=== PATIENT | male | born 1975 | race Caucasian/White ===

== ENCOUNTER → 2022-08-18 09:09 | Outpatient (CLI) | payer OTHER, SELFPAY ==
[2022-08-18 10:36] LABS: Alanine Aminotransferase 33 IU/L (<50); Albumin 4.5 g/dL (3.5-5.0); Albumin Globulin Ratio 1.5 (1.0-2.8); Alkaline Phosphatase 74 U/L (38-126); Aspartate Aminotransferase 23 IU/L (17-59); BUN Creatinine Ratio 22.4 (6-22); Bilirubin Total 0.8 mg/dL (0.2-1.3); Blood Urea Nitrogen 17 mg/dL (9-20); Calcium 9.2 mg/dL (8.4-10.2); Carbon Dioxide 22 mmol/L (22-32); Chloride 108 mmol/L (98-107); Cholesterol 191 mg/dL (140-199); Estimated Glomerular Filt Rate > 60 mL/min (>60); Glucose 98 mg/dL (70-100); HDL Cholesterol 35 mg/dL (40-60); HEMOLYSIS < 15 (0-50); LDL Cholesterol Calculated 117 mg/dL (<100); Potassium 4.4 mmol/L (3.4-5.1); Sodium 138 mmol/L (137-145); Total Protein 7.5 g/dL (6.3-8.2); Triglycerides 194 mg/dL (35-150)
[2022-08-19 03:36] LABS: x Labcorp Estim. Avg Glu (eAG) 111 mg/dL (.); x Labcorp Hemoglobin A1c 5.5 % (4.8-5.6)
== END ==
PROVIDERS: PCP Family Medicine; Referring Provider Family Medicine; Visit Provider Family Medicine
DX: F12.90 Cannabis use, unspecified, uncomplicated (principal); F17.200 Nicotine dependence, unspecified, uncomplicated; G83.21 Monoplegia of upper limb affecting right dominant side; Z00.00 Encounter for general adult medical examination without abnormal findings; Z85.47 Personal history of malignant neoplasm of testis
CPT/HCPCS: 36415; 80053; 80061; 83036

== ENCOUNTER → 2023-09-21 10:37 | Outpatient (CLI) | payer OTHER, SELFPAY ==
[2023-09-21 11:30] LABS: Hematocrit 42.7 % (41-53); Mean Corpuscular HGB Conc 35.2 % (30-36); Mean Corpuscular Hemoglobin 35.6 PG (26-34); Mean Corpuscular Volume 101.3 fL (80-100); Platelet Count 223 X10^3/uL (150-400); Red Blood Cell Count 4.22 X10^6/uL (4.5-5.9); White Blood Cell Count 8.7 X10^3/uL (4.5-11.0)
[2023-09-21 11:42] LABS: Alanine Aminotransferase 25 IU/L (<50); Albumin 4.3 g/dL (3.5-5.0); Albumin Globulin Ratio 1.5 (1.0-2.8); Alkaline Phosphatase 69 U/L (38-126); Aspartate Aminotransferase 21 IU/L (17-59); BUN Creatinine Ratio 17.9 (6-22); Bilirubin Total 0.5 mg/dL (0.2-1.3); Blood Urea Nitrogen 15 mg/dL (9-20); Calcium 8.9 mg/dL (8.4-10.2); Carbon Dioxide 23 mmol/L (22-32); Chloride 110 mmol/L (98-107); Cholesterol 181 mg/dL (140-199); Estimated Glomerular Filt Rate > 60 mL/min (>60); Globulin 2.8 g/dL (1.7-4.1); Glucose 96 mg/dL (70-100); HDL Cholesterol 38 mg/dL (40-60); HEMOLYSIS < 15 (0-50); LDL Cholesterol Calculated 103 mg/dL (<100); Potassium 4.1 mmol/L (3.4-5.1); Sodium 140 mmol/L (137-145); Total Protein 7.1 g/dL (6.3-8.2); Triglycerides 200 mg/dL (35-150)
[2023-09-21 12:58] LABS: HIV 1 & 2 Ab/Ag 4th Gen Combo NEGATIVE (NEGATIVE); Hep C Virus Ab w/Reflex Quant NEGATIVE s/c (NEGATIVE)
== END ==
PROVIDERS: PCP Family Medicine; Referring Provider Family Medicine; Visit Provider Family Medicine
DX: Z00.00 Encounter for general adult medical examination without abnormal findings (principal); Z12.11 Encounter for screening for malignant neoplasm of colon; F17.200 Nicotine dependence, unspecified, uncomplicated; E78.2 Mixed hyperlipidemia
CPT/HCPCS: 36415; 80053; 80061; 82274; 85027; 86803; 87389